=== PATIENT | male | born 1945 | race Caucasian/White ===

== ENCOUNTER → 2016-10-17 | Outpatient (CLI) | payer OTHER ==
[~2016-10-17] MED LIST: ATIVAN1 MG PO; AVODART0.5 MG PO; CELEBREX200 MG PO; CITALOPRAM HBR40 MG PO; CLOTRIMAZOLE15 GM TP; COUMADIN1 MG PO; ENDOCET 5-3251 EACH PO; FERROUS SULFAT325 MG PO; HYDROCODON-ACE1 EAC7 PO; LORAZEPAM1 MG PO; MELOXICAM15 MG PO; NABUMETONE750 MG PO; ONDANSETRON HCL4 MG PO; PERCOCET 5/31 TABLET PO; PREVACID30 MG PO; RIFAMPIN300 MG PO; SENNA-TIME S T1 EACH PO; TAMSULOSIN HCL0.4 MG PO; UROXATRAL10 MG PO; VANCOMYCIN HCL1 GM IV; VITAMIN D31000 UNI2 PO; VITAMIN D31000 UNIT PO; ZEGERID40 MG PO; ZOCOR40 MG PO
== END | disposition home or self-care (01) ==
DX: M17.11 Unilateral primary osteoarthritis, right knee (principal)
CPT/HCPCS: 97110 GP; 97150 GO; 97161 GP; 97165 GO; G8978 GP; G8979 GP; G8980 GP; G8987 GO; G8988 GO; G8989 GO

== ENCOUNTER 2016-11-06 06:41 | Inpatient (IN) | payer OTHER ==
[~2016-11-06] VITALS: Ht 185.4 cm; Wt 131.4 kg
[2016-11-06 08:48] VITALS: BP 170/88
[2016-11-06 13:12] LABS: HEMATOCRIT 42.1 % (38.0-50.0); MCH 32.1 PG (29.0-34.0); MCHC 33.3 G/DL (30.0-36.0); MCV 96.6 FL (86-99); MEAN PLAT.VOLUME 10.9 uM^3 (9.0-12.4); PLATELET COUNT 152 K/uL (156-360); RBC DIS.WIDTH-CV 13.7 % (11.8-14.6); RBC DIS.WIDTH-SD 48.8 % (39-53); RED BLOOD COUNT 4.36 M/uL (4.00-5.50); WHITE BLOOD COUNT 8.2 K/uL (4.1-10.2)
[2016-11-06 15:07] VITALS: BP 186/97
[2016-11-06 18:15] VITALS: BP 179/85
[2016-11-06 20:15] VITALS: BP 198/95
[2016-11-07 00:21] VITALS: BP 197/93
[2016-11-07 04:26] VITALS: BP 151/80
[2016-11-07 05:55] LABS: HEMATOCRIT 41.8 % (38.0-50.0); MCV 95.9 FL (86-99)
[2016-11-07 06:17] LABS: ANION GAP 9 MEQ/L (2-14); CHLORIDE 99 MEQ/L (99-109); GFR ESTIMATE (CALCULATED) > 59 mL/min/; GLUCOSE 134 mg/dL (70-99); POTASSIUM 4.4 MEQ/L (3.7-5.4); SAMPLE HEMOLYSIS CHECK 1; SAMPLE ICTERIC CHECK 0; SAMPLE LIPEMIA CHECK 0; SODIUM 135 MEQ/L (136-147); UREA NITROGEN (BUN) 19 mg/dL (9-23)
[2016-11-07 08:06] VITALS: BP 174/81
[2016-11-07 11:32] VITALS: BP 178/79
[2016-11-07 15:24] VITALS: BP 186/81
[2016-11-07 20:09] VITALS: BP 180/83
[2016-11-08 00:04] VITALS: BP 169/76
[2016-11-08 04:24] VITALS: BP 130/69
[2016-11-08 06:06] LABS: HEMATOCRIT 38.2 % (38.0-50.0); MCV 93.4 FL (86-99)
[2016-11-08 08:16] VITALS: BP 137/70
[2016-11-08 12:04] VITALS: BP 137/71
[2016-11-08 15:40] VITALS: BP 106/55
[2016-11-08 20:08] VITALS: BP 119/58
[2016-11-09 00:19] VITALS: BP 144/68
[2016-11-09 04:22] VITALS: BP 118/59
[2016-11-09 08:21] VITALS: BP 146/68
[2016-11-09] MEDS ORDERED: CELECOXIB200 MG PO (08:31)
[2016-11-09] MEDS ORDERED: SENNA PLUS TAB1 EACH PO (08:31)
[2016-11-09] MEDS ORDERED: LOVENOX40 MG/0.4 SC (08:31)
[2016-11-09] MEDS ORDERED: ENDOCET 5-3251 EACH PO (08:31)
== END 2016-11-09 10:55 | DRG 470 ==
LOC: 3WEST 06:41 → 2SOUTH 06:41 → 3WEST 14:46
PROVIDERS: Orthopaedic Surgery
PROC: 0SRC0J9 Replacement of Right Knee Joint with Synthetic Substitute, Cemented, Open Approach (ICD-10-PCS; principal; 2016-11-06)
DX: M17.11 Unilateral primary osteoarthritis, right knee (principal); I10 Essential (primary) hypertension; E78.5 Hyperlipidemia, unspecified; J44.9 Chronic obstructive pulmonary disease, unspecified; K21.9 Gastro-esophageal reflux disease without esophagitis; N40.0 Benign prostatic hyperplasia without lower urinary tract symptoms; G47.33 Obstructive sleep apnea (adult) (pediatric); E55.9 Vitamin D deficiency, unspecified; F32.9 Major depressive disorder, single episode, unspecified; F41.9 Anxiety disorder, unspecified
CPT/HCPCS: 71010; 73560; 80048; 85014; 85018; 85027; 97530 GP; C1713; J0131; J0690; J1100; J1170; J1650; J2250; J2405; J3010; J3370; J7050

== ENCOUNTER 2016-12-12 23:37 | Emergency (ER) | payer OTHER ==
[~2016-12-12] VITALS: Ht 185.4 cm; Wt 127.3 kg
[~2016-12-12 23:37] MED LIST changes: +CELECOXIB200 MG PO; +LOVENOX40 MG/0.4 SC; +SENNA PLUS TAB1 EACH PO
[2016-12-13 00:39] LABS: HEMATOCRIT 38.4 % (38.0-50.0); MCH 30.4 PG (29.0-34.0); MCHC 31.8 G/DL (30.0-36.0); MCV 95.8 FL (86-99); MEAN PLAT.VOLUME 10.8 uM^3 (9.0-12.4); NRBC (%) 0.2 /100 WBC (0-0); PLATELET COUNT 246 K/uL (156-360); RBC DIS.WIDTH-CV 14.7 % (11.8-14.6); RBC DIS.WIDTH-SD 52.4 % (39-53); RED BLOOD COUNT 4.01 M/uL (4.00-5.50)
[2016-12-13 00:40] LABS: WHITE BLOOD COUNT 8.9 K/uL (4.1-10.2)
[2016-12-13 00:53] LABS: CHLORIDE 110 mEq/L (99-109); SODIUM 142 mEq/L (136-147)
[2016-12-13 00:54] LABS: GLUCOSE 118 mg/dL (70-99)
[2016-12-13 00:56] LABS: ANION GAP 9 MEQ/L (2-14)
[2016-12-13 00:58] LABS: GFR ESTIMATE (CALCULATED) 58 mL/min/
[2016-12-13 00:59] LABS: UREA NITROGEN (BUN) 22 mg/dL (9-23)
[2016-12-13 01:55] LABS: ADD MIUA? YES; BILIRUBIN NEGATIVE; BLOOD NEGATIVE; COLOR AMBER ((YELLOW)); GLUCOSE (STRIP) NEGATIVE; KETONES NEGATIVE; LEUKOCYTES MODERATE; NITRITE POSITIVE; PROTEIN (STRIP) >=500; SPECIFIC GRAVITY 1.019 (1.000-1.030); UROBILINOGEN 0.2 MG/DL (0.2-1.0)
[2016-12-13 02:14] LABS: WHITE BLOOD CELLS 40-50 /HPF (0-5)
[2016-12-13 02:15] LABS: AMORPHOUS PHOSPHATE CRYSTALS 3+; BACTERIA 2+ /HPF; CASTS NONE SEEN /LPF; CRYSTALS PRESENT; EPITHELIAL CELLS RARE /HPF; MUCUS NONE SEEN /LPF; UCUL ADDED? YES
[2016-12-13] MEDS ORDERED: CIPRO500 MG PO (02:21)
[2016-12-13 03:16] VITALS: BP 154/78
== END 2016-12-13 03:17 | disposition home or self-care (01) ==
LOC: EME 23:37
PROVIDERS: Emergency Medicine
PROC: 0T9B70Z Drainage of Bladder with Drainage Device, Via Natural or Artificial Opening (ICD-10-PCS; principal; 2016-12-12)
DX: R33.9 Retention of urine, unspecified (principal); N30.00 Acute cystitis without hematuria; E78.5 Hyperlipidemia, unspecified; K21.9 Gastro-esophageal reflux disease without esophagitis
CPT/HCPCS: 80048; 81003; 85027; 87077; 87086; 87186; 99281; 99284

== ENCOUNTER 2017-04-10 10:04 | Day surgery (SDC) | payer OTHER ==
[~2017-04-10] VITALS: Ht 185.4 cm; Wt 128.4 kg
[~2017-04-10 10:04] MED LIST changes: +CIPRO500 MG PO; +PROSCAR5 MG PO
[2017-04-10 10:50] VITALS: BP 172/81
[2017-04-10 11:40] LABS: METH RESISTANT S AUREUS PCR POSITIVE (NEGATIVE); PROBE CHECK PASS
[2017-04-10 16:03] VITALS: BP 178/81
[2017-04-10 19:22] VITALS: BP 174/80
[2017-04-11 00:21] VITALS: BP 178/82
[2017-04-11 03:32] VITALS: BP 179/80
[2017-04-11 07:50] VITALS: BP 179/84
[2017-04-11 11:20] VITALS: BP 169/81
== END 2017-04-11 15:07 | disposition home or self-care (01) ==
LOC: SDC 10:04 → ENRESERV 14:58 → 2EAST 14:59 → 2SOUTH 14:59 → ENRESERV 15:24 → 2EAST 15:50 → ENRESERV 15:50 → 2EAST 04-11 15:07
PROVIDERS: Surgery
PROC: 0YU50JZ Supplement Right Inguinal Region with Synthetic Substitute, Open Approach (ICD-10-PCS; principal; 2017-04-10)
DX: K40.30 Unilateral inguinal hernia, with obstruction, without gangrene, not specified as recurrent (principal); B95.62 Methicillin resistant Staphylococcus aureus infection as the cause of diseases classified elsewhere; E66.01 Morbid (severe) obesity due to excess calories; Z68.35 Body mass index [BMI] 35.0-35.9, adult; G47.30 Sleep apnea, unspecified; F41.8 Other specified anxiety disorders; E78.5 Hyperlipidemia, unspecified; K21.9 Gastro-esophageal reflux disease without esophagitis; Z86.14 Personal history of Methicillin resistant Staphylococcus aureus infection; Z96.642 Presence of left artificial hip joint
CPT/HCPCS: 87641; 94799; C1781; G0378; J0131; J0690; J1100; J1170; J1650; J2020; J2405; J3010; S0020